=== PATIENT | female | born 1955 | race Two or more races ===

== ENCOUNTER 2017-02-08 14:54 | Emergency (ER) | payer SELFPAY ==
[~2017-02-08] VITALS: Ht 154.9 cm; Wt 90.7 kg
[2017-02-08] MEDS ORDERED: Albuterol ud Inhalation HHN ONE (15:15)
[2017-02-08] MEDS ORDERED: Ketorolac 30mg Inj IV ONE (15:15)
[2017-02-08 15:48] LABS: BASOPHILS % (AUTO) 0.8 % (0.0-2.0); EOSINOPHILS % (AUTO) 2.2 % (0.0-3.0); MEAN CORPUSCULAR HEMOGLOBIN 27.3 PG (27.0-31.0); MEAN CORPUSCULAR HGB CONC 31.8 G/DL (32.0-36.0); MEAN CORPUSCULAR VOLUME 86 FL (80-99); MEAN PLATELET VOLUME 7.1 FL (6.5-10.1); MONOCYTES % (AUTO) 8.3 % (1.0-10.0); NEUTROPHILS % (AUTO) 77.8 % (45.0-75.0); PLATELET COUNT 260 K/UL (150-450); RED BLOOD COUNT 5.09 M/UL (4.20-5.40); RED CELL DISTRIBUTION WIDTH 14.4 % (11.6-14.8)
--- NOTE | 2017-02-08 15:52 | Emergency Room Report ---
History of Present Illness General Chief Complaint: Flu Like Symptoms Source: Patient Present Illness HPI [id number] with 1 day of "feeling high" with dizziness, nausea/vomiting, cough, muscle aches, headache. Denies smoking, asthma/COPD, sick contacts. Didnt take any OTC meds. History fo HTN, non-compliant with med. Denies chest pain, SOB, neck pain/stiffness. Allergies: Coded Allergies: CODEINE (Verified Allergy, Unknown, 02/08/17) Patient History Past Medical History: HTN Past Surgical History: none Pertinent Family History: none Social History: Denies: alcohol use, drug use, smoking Now: No Immunizations: UTD Reviewed Nursing Documentation: PMH: Agreed, PSxH: Agreed Nursing Documentation-PMH Past Medical History: No History, Except For Hx Hypertension: Yes Review of Systems All Other Systems: negative except mentioned in HPI Physical Exam Vital Signs Date Time Temp Pulse Resp B/P Pulse Ox O2 Delivery O2 Flow Rate FiO2 02/08/17 14:50 99.0 98 18 198/92 96 Room Air Sp02 EP Interpretation: reviewed, abnormal General Appearance: normal inspection, well appearing, no apparent distress, alert, GCS 15, non-toxic Head: normocephalic, atraumatic Eyes: bilateral eye EOMI, bilateral eye PERRL ENT: normal ENT inspection, hearing grossly normal, normal voice Neck: normal inspection, full range of motion, supple, no bony tend Respiratory: normal inspection, lungs clear, normal breath sounds, no rhonchi, no respiratory distress, no retraction, no accessory muscle use, no wheezing, speaking full sentences Cardiovascular #1: regular rate, rhythm, no edema Gastrointestinal: normal inspection, normal bowel sounds, non tender, soft, no guarding, no hernia Genitourinary: no CVA tenderness Musculoskeletal: normal inspection, back normal, normal range of motion, Valarie' s Sign negative Neurologic: normal inspection, alert, oriented x3, responsive, sewage plant attendant III-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 Gait is normal Psychiatric: normal inspection, judgement/insight normal, mood/affect normal Skin: normal inspection, normal color, no rash Lymphatic: normal inspection Medical Decision Making Diagnostic Impression: Primary Impression: Influenza-like symptoms Additional Impressions: Bronchitis Hypertension Qualified Codes: I10 - Essential (primary) hypertension ER Course Influenza like symptoms - Improved with IVF NS hydration, toradol, zofran - Patient feels much better - ambulating in ED with steady gait - CXR and UA negative for infection - Utox negative - Mild leuks 11k, likely viral Bronchitis - Improved with nebulizer - Will DC with albuterol inhaler, and Z-pack (was given 500mg azithro for presumed CAP here given subjective fevers, cough). HTN - Patient likely has untreated essential HTN - Will DC with Rx Norvasc as patient does NOT have PMD followu, repeat elevated BP here EKG Diagnostic Results Rate: tachycardiac Rhythm: NSR ST Segments: no acute changes ASA given to the pt in ED: No Rhythm Strip Diag. Results EP Interpretation: yes Rate: 101 Rhythm: NSR, no PVC's, no ectopy Chest X-Ray Diagnostic Results EP Interpretation: Yes Findings: no consolidation, no effusion, no pneumothorax, no acute cardiopulmonary disease Number of Views: 1 Last Vital Signs Date Time Temp Pulse Resp B/P Pulse Ox O2 Delivery O2 Flow Rate FiO2 02/08/17 15:41 105 22 Room Air 02/08/17 15:26 94 02/08/17 14:50 99.0 198/92 Status: improved Disposition: HOME, SELF-CARE JONATHAN ROSE M.D. February 08, 2017 15:52
[2017-02-08 15:57] LABS: TROPONIN I < 0.30 ng/mL (<=0.30)
[2017-02-08] MEDS ORDERED: Azithromycin 500 MG in NS 275 ML IV ONE (16:00)
[2017-02-08 16:01] LABS: ALANINE AMINOTRANSFERASE 23 U/L (3-33); ANION GAP 17 (5-15); ASPARTATE AMINO TRANSFERASE 24 U/L (5-40); CALCIUM 8.4 mg/dL (8.6-10.2); CARBON DIOXIDE 25 mEQ/L (20-30); CHLORIDE 98 mEQ/L (98-107); CREATININE 0.7 mg/dL (0.5-0.9); GLOMERULAR FILTRATION RATE > 60 mL/min (>60); HEMOLYSIS 4; LIPASE 14 U/L (< 60); POTASSIUM 3.5 mEQ/L (3.4-4.9); SODIUM 140 mEQ/L (135-145); TOTAL PROTEIN 7.7 g/dL (6.6-8.7)
[2017-02-08 16:11] LABS: APPEARANCE,URINE SLIGHTLY CLOUDY; KETONES,URINE NEGATIVE (NEGATIVE); LEUKOCYTE ESTERASE ,URINE NEGATIVE (NEGATIVE); NITRITE,URINE NEGATIVE (NEGATIVE); PH,URINE 7 (4.5-8.0); PROTEIN,URINE 2+ (NEGATIVE); UROBILINOGEN,URINE NORMAL MG/DL (0.0-1.0)
[2017-02-08] MEDS ORDERED: Azithromycin Inj IV ONE (16:13)
[2017-02-08 16:18] LABS: BACTERIA,URINE FEW /HPF; MUCUS,URINE FEW /LPF (NONE/OCC); SQUAMOUS EPITHELIAL CELL,UR FEW /LPF (NONE/OCC); WBC,URINE 0 /HPF (0 - 2)
[2017-02-08] MEDS ORDERED: VENTOLIN HFA18 GM INH (16:59)
[2017-02-08] MEDS ORDERED: AZITHROMYCIN250 MG ORAL (16:59)
[2017-02-08] MEDS ORDERED: IBUPROFEN600 MG ORAL (16:59)
[2017-02-08] MEDS ORDERED: NORVASC5 MG ORAL (16:59)
[2017-02-08 17:35] VITALS: BP 160/90
[2017-02-08 17:37] VITALS: BP 160/90
--- NOTE | 2017-02-09 10:52 | Diagnostic Imaging Report ---
Indication: Dyspnea Comparison: None A single view chest radiograph was obtained. Findings: Cardiomediastinal appearance is within normal limits for age. Pulmonary vascularity is appropriate. The diaphragmatic contour is smooth and costophrenic angles are sharp. No pleural effusions are identified. The bones are osteopenic. Impression: No acute findings
--- NOTE | 2017-02-09 18:53 | Cardiology Report ---
APPROVED REPORT EKG Measurement Heart [id number] Sinus tachycardia with single APC's
== END 2017-02-08 17:39 | disposition home or self-care (01) ==
LOC: EDBD 14:54 → EMR 15:21
DX: R09.89 Other specified symptoms and signs involving the circulatory and respiratory systems (principal); J40 Bronchitis, not specified as acute or chronic; I10 Essential (primary) hypertension; Z88.5 Allergy status to narcotic agent; R11.2 Nausea with vomiting, unspecified; R05 Cough; M79.1 Myalgia; R51 Headache; Z91.14 Patient's other noncompliance with medication regimen
CPT/HCPCS: 36415; 71010; 80053; 80300; 81003; 83690; 84484; 85025; 86710; 93005; 94640; 94664; 96374; 96375; 99284; J0456; J1885; J2405; J7050

== ENCOUNTER 2020-08-25 15:15 | Inpatient (IN) | payer MEDICAID ==
[~2020-08-25] VITALS: Ht 154.9 cm; Wt 86.2 kg
[2020-08-25] VITALS: BP 125/64
[~2020-08-25 15:15] MED LIST: AZITHROMYCIN250 MG ORAL; IBUPROFEN600 MG ORAL; NORVASC5 MG ORAL; VENTOLIN HFA18 GM INH
[2020-08-25 15:35] VITALS: BP 185/81
[2020-08-25] MEDS ORDERED: Omnipaque 350 100ml vial INJ PRN ×2 (15:45)
--- NOTE | 2020-08-25 15:47 | Emergency Room Report ---
History of Present Illness General Chief Complaint: Dizziness Source: Patient Present Illness HPI 65-year-old -Maldivian female with past medical history of hypertension presents with chief complaint of sudden onset dizziness and generalized weakness since this morning at 7 AM. She states that she has this feeling of falling to the side like she was gonna pass out, also associated with nausea. Denies tinnitus, visual blurring, slurred speech, head trauma, fall, syncope, chest pain, back pain, abdominal pain, melena, hematochezia, hematuria, fevers, chills, cough or any other symptoms. She states she had a previous episode of this 10 years ago that self resolved after she self administered aspirin. She states she has otherwise been in her normal state of health. No new changes in her medications. The patient's symptoms were gradual onset, severity was moderate, duration since 8 hours. Quality: Dizzy, generally weak Past medical history: Hypertension Past surgical history: Hysterectomy Smoking: Denies Alcohol use: Denies Drug use: Denies Review of systems: CONST: No fevers or chills, No night sweats PULMONARY: No productive cough, No shortness of breath CARDIAC: No chest pain, No palpitations GI: No vomiting, No diarrhea , No melena_or_BRBPR : No dysuria, No hematuria, No discharge NEURO: No new_focal_weakness_or_numbness, No confusion, No vision changes Dizziness++ 14 point Review of Systems is otherwise negative except per HPI Physical Exam: GENERAL: Awake_alert_ nontoxic, no acute distress Spo2 98% on RA -normal EYES: Extraocular muscles are intact. Conjunctivae clear. Lids without swelling. No nystagmus. ENT: External nose and ear normal_in_appearance. Oropharynx clear. Head_atraumatic, Moist_oral_mucosa NECK: No JVD. No meningismus. No thyromegaly. Supple. Trachea midline. No nuchal rigidity RESP: Normal respiratory effort. Symmetric rise. No stridor. Clear_to_auscultation_No_rales_No_wheezes CARDIAC: Regular rate and regular rhytm. No_significant pedal edema. ABDOMEN: Soft. Nondistended. Nontender_No_rebound_or_guarding. MSK: Normal muscle tone, without rigidity. Extremities without asymmetric deformity or swelling. SKIN: Warm and dry. No visible cyanosis or pallor NEUROLOGIC: Alert, oriented x3. Motor_and_sensation_grossly_intact. No truncal ataxia. No pronator drift. No hemiplegia. No slurred speech. No dysarthria. No dysmetria. Psych: Normal mood and affect, normal judgment and insight - COORDINATION OF CARE Case was discussed with: Patient , Patient's Physician Any labs and imaging that were ordered were interpreted as part of the medical decision making: Medical Decision Making/Plan: Differential diagnosis for the patients symptoms include causes of peripheral vertigo (including BPPV, vestibular neuritis, Menieres disease, viral labyrinthitis), causes of central vertigo (including cerebellar ischemic stroke, hemorrhagic stroke, acoustic neuroma, vertebrobasilar insufficiency), malignant arrhythmias, ACS, obstructive heart disease (critical aortic stenosis, hypertrophic cardiomyopathy), acute anemia, severe dehydration, electrolyte abnormalities, among others. Patient's exam shows no focal neurologic deficit. No abnormal cerebellar signs. Negative Romberg. Negative pronator drift. Patient felt too symptomatic (ge nerally weak) to ambulate out of bed. EKG shows no signs of malignant arrhythmia such as Brugada syndrome, delta wave, epsilon wave, significant heart block, or QTc >500. CXR shows cardiomegaly without pleural effusions. Troponin is positive x1 with absolute value of 0.524. BNP is mildly elevated greater than 500. Labs show no severe electrolyte derangement such as severe hyponatremia, hypokalemia, acidosis, or hypoglycemia. CTA head and neck are negative for ICH or LVO. No grossly evident acute abnorm ality on the noncontrast portion. Parenchymal atrophy and chronic lacunar infarcts in the basal ganglia. Aspirin was administered. The patient denies any external blood loss and has no significant pallor or evidence of acute anemia as a cause of their symptoms. Hemoglobin is not severely low, and acute blood transfusion is not indicated. In addition, the patient has no loud murmur or evidence of significant obstructive heart disease, symptoms are not in the setting of exertion. The patient is neurologically intact, with normal cerebellar exam, without any evidence of central vertigo as a cause of their symptoms. I spoke with Dr. CANADA, and reviewed the patients presentation, workup, results, and treatment. They will admit the patient for further care and evaluation, and assume care of the patient at this time. Allergies: Coded Allergies: PENICILLINS (Verified Allergy, Severe, Rash, 08/25/20) CODEINE (Verified Allergy, Unknown, 02/08/17) HYDROCODONE (Verified Allergy, Unknown, 08/25/20) COVID-19 Screening Contact w/high risk pt: No Experienced COVID-19 symptoms?: No COVID-19 Testing performed PROFESSOR OF CHEMISTRY: No Patient History Last Menstrual Period: na Nursing Documentation-PMH Past Medical History: No History, Except For Hx Hypertension: Yes Physical Exam Vital Signs Date Time Temp Pulse Resp B/P (MAP) Pulse Ox O2 Delivery O2 Flow Rate FiO2 08/25/20 15:17 97.9 92 18 185/81 (115) 96 Room Air Sp02 EP Interpretation: reviewed, normal Medical Decision Making Diagnostic Impression: Primary Impression: NSTEMI (non-ST elevated myocardial infarction) Additional Impressions: Pre-syncope Generalized weakness HTN (hypertension) EKG Diagnostic Results Troponin ordered: Yes When was troponin ordered?: Aug 25, 2020 REKHA Scribe Text 12-lead EKG (interpreted by me) Time: 1642 Indication: Rhythm analysis Tracing visualized and Interpreted by me. Rhythm: Normal sinus rhythm Rate: 84 bpm QTc: 427 Morphology: No_significant_ST_elevations_or_depressions, No STEMI Impression: Normal_sinus_rhythm_without_significant_abnormality. T wave inversion lead aVL Rhythm Strip Diag. Results Rhythm Strip Time: 16:51 EP Interpretation: yes Rate: 88 Rhythm: NSR, no PVC's, no ectopy Chest X-Ray Diagnostic Results Chest X-Ray Diagnostic Results : REKHA Scribe Text Chest X-Ray: Views: [ 1 ] view(s) Indication: Dizziness Findings: Normal heart size. Mediastinum normal. No infiltrate. Impression: Cardiomegaly, no pleural effusion, no pneumonia The X-ray(s) were independently viewed and interpreted contemporaneously Electronically signed by , Tashia Brown DO CT/MRI/US Diagnostic Results CT/MRI/US Diagnostic Results : Impression CT Angiography Head Without and With Intravenous Contrast CLINICAL HISTORY: FINDINGS: VASCULATURE: Right internal carotid artery: Atherosclerotic calcifications within the cavernous segment of the right internal carotid artery without significant stenosis. No aneurysm. Right anterior cerebral artery: Unremarkable. No occlusion or significant stenosis. No aneurysm. Right middle cerebral artery: Unremarkable. No occlusion or significant stenosis. No aneurysm. Right posterior cerebral artery: origin of the LANDSCAPE GARDENER on the right. Multifocal atherosclerotic disease within the right LANDSCAPE GARDENER. No arterial occlusion. No aneurysm. Right vertebral artery: Unremarkable as visualized. Left internal carotid artery: Atherosclerotic calcifications within the cavernous segment of the left internal carotid artery without significant stenosis. No aneurysm. Left anterior cerebral artery: Unremarkable. No occlusion or significant stenosis. No aneurysm. Left middle cerebral artery: Unremarkable. No occlusion or significant stenosis. No aneurysm. Left posterior cerebral artery: Multifocal atherosclerotic disease within the left LANDSCAPE GARDENER. No arterial occlusion. No aneurysm. Left vertebral artery: Unremarkable as visualized. Basilar artery: Multifocal mild to moderate stenosis within the basilar artery. No aneurysm. HEAD: Brain: No intracranial hemorrhage or grossly evident acute cortical infarct. Parenchymal atrophy. Chronic lacunar infarcts within the bilateral basal ganglia. Ventricles: Unremarkable. No ventriculomegaly. Bones/joints: No acute fracture. Soft tissues: Unremarkable. Sinuses: Unremarkable as visualized. No acute sinusitis. Mastoid air cells: Unremarkable as visualized. No mastoid effusion. IMPRESSION: 1. No grossly evident acute abnormality on the noncontrast portion. Parenchymal atrophy and chronic lacunar infarcts in the basal ganglia. 2. No arterial occlusion. 3. Multifocal atheromatous disease within the basilar artery and gravity prospecting supervisor. Radiologist: Jose Cruz Alvarez MD Electronically Signed: 08/25/20 19:59 Reevaluation Time: 16:52 Last Vital Signs Date Time Temp Pulse Resp B/P (MAP) Pulse Ox O2 Delivery O2 Flow Rate FiO2 08/25/20 15:17 97.9 92 18 185/81 (115) 96 Room Air Status: improved Disposition: ADMITTED INPATIENT Admit Decision Time: 16:52 Condition: Stable Tashia Brown D.O. Aug 25, 2020 15:47
[2020-08-25 17:20] LABS: BASOPHILS % (AUTO) 0.6 % (0.0-2.0); EOSINOPHILS % (AUTO) 0.8 % (0.0-3.0); HEMATOCRIT 35.9 % (37.0-47.0); HEMOGLOBIN 12.2 G/DL (12.0-16.0); LYMPHOCYTES % (AUTO) 20.5 % (20.0-45.0); MEAN CORPUSCULAR VOLUME 85 FL (80-99); MONOCYTES % (AUTO) 6.4 % (1.0-10.0); NEUTROPHILS % (AUTO) 71.7 % (45.0-75.0); PLATELET COUNT 257 K/UL (150-450); RED BLOOD COUNT 4.22 M/UL (4.20-5.40); RED CELL DISTRIBUTION WIDTH 14.1 % (11.6-14.8); WHITE BLOOD COUNT 12.6 K/UL (4.8-10.8)
[2020-08-25 17:22] LABS: ALANINE AMINOTRANSFERASE 20 U/L (12-78); ALBUMIN 3.3 G/DL (3.4-5.0); ALBUMIN/GLOBULIN RATIO 0.8 (1.0-2.7); ALKALINE PHOSPHATASE 99 U/L (46-116); ASPARTATE AMINO TRANSFERASE 13 U/L (15-37); BILIRUBIN,TOTAL 0.6 MG/DL (0.2-1.0); BLOOD UREA NITROGEN 13 mg/dL (7-18); CALCIUM 8.5 MG/DL (8.5-10.1); CARBON DIOXIDE 30 MMOL/L (21-32); CHOLESTEROL 188 MG/DL (< 200); CREATININE 0.9 MG/DL (0.55-1.30); HDL CHOLESTEROL 48 MG/DL (40-60); TRIGLYCERIDES 128 MG/DL (30-150)
--- NOTE | 2020-08-25 17:30 | Diagnostic Imaging Report ---
EXAM: XR Chest, 1 View CLINICAL HISTORY: WEAK TECHNIQUE: Frontal view of the chest. COMPARISON: No relevant prior studies available. FINDINGS: Lungs: Unremarkable. No consolidation. Pleural space: No pleural effusion. No pneumothorax. Heart: Unremarkable. No cardiomegaly. Bones/joints: Unremarkable. IMPRESSION: No acute cardiopulmonary abnormality.
[2020-08-25 18:11] LABS: CHLORIDE 103 MMOL/L (98-107); POTASSIUM 3.1 MMOL/L (3.5-5.1); SODIUM 140 MMOL/L (136-145)
[2020-08-25 19:24] LABS: APPEARANCE,URINE CLEAR; BILIRUBIN, URINE NEGATIVE (NEGATIVE); COLOR,URINE PALE YELLOW; GLUCOSE, URINE (UA) NEGATIVE (NEGATIVE); KETONES,URINE 1+ (NEGATIVE); LEUKOCYTE ESTERASE ,URINE NEGATIVE (NEGATIVE); NITRITE,URINE NEGATIVE (NEGATIVE); PH,URINE 7 (4.5-8.0); PROTEIN,URINE NEGATIVE (NEGATIVE); UROBILINOGEN,URINE NORMAL MG/DL (0.0-1.0)
[2020-08-25 19:38] VITALS: BP 169/75
--- NOTE | 2020-08-25 19:59 | Diagnostic Imaging Report ---
EXAM: CT Angiography Head Without and With Intravenous Contrast CLINICAL HISTORY: DIZZY TECHNIQUE: Axial computed tomographic angiography images of the head without and with intravenous contrast. CTDI is 45.1 mGy and DLP is 1110.5 mGy-cm. One or more of the following dose reduction techniques were used: automated exposure control, adjustment of the mA and/or kV according to patient size, use of iterative reconstruction technique. MIP reconstructed images were created and reviewed. COMPARISON: No relevant prior studies available. FINDINGS: VASCULATURE: Right internal carotid artery: Atherosclerotic calcifications within the cavernous segment of the right internal carotid artery without significant stenosis. No aneurysm. Right anterior cerebral artery: Unremarkable. No occlusion or significant stenosis. No aneurysm. Right middle cerebral artery: Unremarkable. No occlusion or significant stenosis. No aneurysm. Right posterior cerebral artery: origin of the ANALYSIS CONSULTANT on the right. Multifocal atherosclerotic disease within the right ANALYSIS CONSULTANT. No arterial occlusion. No aneurysm. Right vertebral artery: Unremarkable as visualized. Left internal carotid artery: Atherosclerotic calcifications within the cavernous segment of the left internal carotid artery without significant stenosis. No aneurysm. Left anterior cerebral artery: Unremarkable. No occlusion or significant stenosis. No aneurysm. Left middle cerebral artery: Unremarkable. No occlusion or significant stenosis. No aneurysm. Left posterior cerebral artery: Multifocal atherosclerotic disease within the left ANALYSIS CONSULTANT. No arterial occlusion. No aneurysm. Left vertebral artery: Unremarkable as visualized. Basilar artery: Multifocal mild to moderate stenosis within the basilar artery. No aneurysm. HEAD: Brain: No intracranial hemorrhage or grossly evident acute cortical infarct. Parenchymal atrophy. Chronic lacunar infarcts within the bilateral basal ganglia. Ventricles: Unremarkable. No ventriculomegaly. Bones/joints: No acute fracture. Soft tissues: Unremarkable. Sinuses: Unremarkable as visualized. No acute sinusitis. Mastoid air cells: Unremarkable as visualized. No mastoid effusion. IMPRESSION: 1. No grossly evident acute abnormality on the noncontrast portion. Parenchymal atrophy and chronic lacunar infarcts in the basal ganglia. 2. No arterial occlusion. 3. Multifocal atheromatous disease within the basilar artery and junior art director.
[2020-08-25 20:34] VITALS: BP 157/72
[2020-08-25] MEDS ORDERED: Zolpidem 5mg tab ORAL PRN (21:45)
[2020-08-25] MEDS: Heparin 5000 units/ml inj SUBQ SCH (23:35)
[2020-08-26] VITALS: BP 125/64
[2020-08-26 04:00] VITALS: BP 140/59
[2020-08-26 08:00] VITALS: BP 130/67
[2020-08-26] MEDS: Heparin 5000 units/ml inj SUBQ SCH ×2 (08:54→21:55)
[2020-08-26] MEDS ORDERED: Aspirin EC 325mg tab ORAL SCH (09:00)
--- NOTE | 2020-08-26 09:42 | History & Physical ---
History and Physical History & Physicial HP dictated # [id number] Garland Freire MD Aug 26, 2020 09:42
--- NOTE | 2020-08-26 10:29 | History and Physical Report ---
DATE OF ADMISSION: 08/25/2020 CHIEF COMPLAINT: Dizziness, vomiting, and blurred vision. HISTORY OF PRESENT ILLNESS: This is a 65-year-old female who was shopping yesterday in the store. She felt that the light was dark. She kept the shopping but then she had feeling of disequilibrium . She did not feel well, feeling of falling to one side, also she had some blurred vision. Finally, she came to the emergency room and was admitted. She has had high blood pressure but she apparently was not taking medications because she felt that it did not help her to control the blood pressure. No matter if she took it or not, the blood pressure was the same. PAST MEDICAL HISTORY: She denies history of diabetes, previous stroke, she did have a similar episode years ago but not to this degree. PAST SURGICAL HISTORY: She is status post hysterectomy. MEDICATIONS: None at admission. ALLERGIES: Codeine, hydrocodone, and penicillin causing itching. SOCIAL HISTORY: No history of smoking or alcohol abuse. The patient lives with her daughter. REVIEW OF SYSTEMS: As above. PHYSICAL EXAMINATION: GENERAL: The patient is a 65-year-old female in no acute distress. No vomiting today. VITAL SIGNS: Blood pressure 130/67, pulse 91, temperature 96.8. HEENT: [place] conjunctivae. Anicteric sclerae. NECK: Supple. LUNGS: Clear to auscultation. HEART: S1, S2 without murmurs or rubs. ABDOMEN: Soft, nontender. EXTREMITIES: No cyanosis or edema. LABORATORY FINDINGS: The chemistry panel shows a sodium 140, potassium 3.1, chloride 103, carbon dioxide 30, BUN 13, and creatinine 0.9, blood sugar is 118. Hemoglobin A1c was 7.5. Troponin was elevated at 0.52. Albumin is 3.3. Triglyceride 128, LDL is 114. Lipase is 79. HDL is 48. UA was [place]. [place] [address], hematocrit 35.9, hemoglobin is 12.2, platelet is 257,000. ASSESSMENT: This is a 65-year-old female was admitted with a lack of balance, disequilibrium, some blurred vision. Differential diagnosis of transient ischemic attack. I doubt CVA. Risk factor is obviously uncontrolled hypertension but also her hemoglobin A1c is elevated. She probably has undiagnosed diabetes as well. PLAN: The patient will be observed in telemetry unit. Neurology consultation will be obtained. The blood sugar will be checked. The patient will be on sliding scale insulin. Blood pressure will be controlled. Labs will be followed and adjustment will be made in the patient's regimen. The patient will be also seen by Physical Therapy. Garland Freire M.D. DR: Catherine JOB#: [id number] CC:
[2020-08-26 12:00] VITALS: BP 129/81
[2020-08-26] MEDS ORDERED: Gadavist 7.5mMol/7.5ml vial IV PRN (13:00)
--- NOTE | 2020-08-26 13:56 | Cardiology Progress Note ---
Assessment/Plan Assessment/Plan [id number] no sx to asuggest acs mildl trop abn withno peak nor andir over 18 hour will b repeated venous duplex will be oreded echo reepat ekg agree widavid burcho evalutaion bp conteol with margaret and amlodipine and possible bb thank you Objective Last 24 Hour Vital Signs Date Time Temp Pulse Resp B/P (MAP) Pulse Ox O2 Delivery O2 Flow Rate FiO2 08/26/20 08:54 91 130/67 08/26/20 08:48 79 08/26/20 08:00 96.8 91 19 130/67 (88) 100 08/26/20 04:00 79 08/26/20 04:00 97.7 18 140/59 (86) 95 08/26/20 00:00 98.1 18 125/64 (84) 96 08/26/20 00:00 89 08/25/20 23:34 171/80 08/25/20 22:47 Room Air 08/25/20 21:30 98.0 80 18 161/76 100 Room Air 08/25/20 20:34 98.0 85 18 157/72 100 Room Air 08/25/20 19:38 98.0 81 18 169/75 100 Room Air 08/25/20 15:35 92 18 Room Air 08/25/20 15:35 97.9 18 185/81 96 Room Air 08/25/20 15:17 97.9 92 18 185/81 (115) 96 Room Air Laboratory Tests Test 08/25/20 15:55 08/25/20 18:53 08/26/20 07:40 White Blood Count 12.6 K/UL (4.8-10.8) H Red Blood Count 4.22 M/UL (4.20-5.40) Hemoglobin 12.2 G/DL (12.0-16.0) Hematocrit 35.9 % (37.0-47.0) L Mean Corpuscular Volume 85 FL (80-99) Mean Corpuscular Hemoglobin 28.8 PG (27.0-31.0) Mean Corpuscular Hemoglobin Concent 33.9 G/DL (32.0-36.0) Red Cell Distribution Width 14.1 % (11.6-14.8) Platelet Count 257 K/UL (150-450) Mean Platelet Volume 7.6 FL (6.5-10.1) Neutrophils (%) (Auto) 71.7 % (45.0-75.0) Lymphocytes (%) (Auto) 20.5 % (20.0-45.0) Monocytes (%) (Auto) 6.4 % (1.0-10.0) Eosinophils (%) (Auto) 0.8 % (0.0-3.0) Basophils (%) (Auto) 0.6 % (0.0-2.0) Prothrombin Time 11.0 SEC (9.30-11.50) Prothromb Time International Ratio 1.0 (0.9-1.1) Activated Partial Thromboplast Time 27 SEC (23-33) Sodium Level 140 MMOL/L (136-145) Potassium Level 3.1 MMOL/L (3.5-5.1) L Chloride Level 103 MMOL/L (98-107) Carbon Dioxide Level 30 MMOL/L (21-32) Blood Urea Nitrogen 13 mg/dL (7-18) Creatinine 0.9 MG/DL (0.55-1.30) Estimat Glomerular Filtration Rate > 60 mL/min (>60) Glucose Level 118 MG/DL (74-106) H Hemoglobin A1c 7.5 % (4.3-6.0) H Calcium Level 8.5 MG/DL (8.5-10.1) Total Bilirubin 0.6 MG/DL (0.2-1.0) Aspartate Amino Transf (AST/SGOT) 13 U/L (15-37) L Alanine Aminotransferase (ALT/SGPT) 20 U/L (12-78) Alkaline Phosphatase 99 U/L (46-116) Troponin I 0.524 ng/mL (0.000-0.056) 0.516 ng/mL (0.000-0.056) Pro-B-Type Natriuretic Peptide 504 pg/mL (0-125) H Total Protein 7.3 G/DL (6.4-8.2) Albumin 3.3 G/DL (3.4-5.0) L Globulin 4.0 g/dL Albumin/Globulin Ratio 0.8 (1.0-2.7) L Triglycerides Level 128 MG/DL (30-150) Cholesterol Level 188 MG/DL (< 200) LDL Cholesterol 114 mg/dL (<100) H HDL Cholesterol 48 MG/DL (40-60) Cholesterol/HDL Ratio 3.9 (3.3-4.4) Lipase 79 U/L (73-393) Urine Color Pale yellow Urine Appearance Clear Urine pH 7 (4.5-8.0) Urine Specific [place] 1.005 (1.005-1.035) Urine Protein Negative (NEGATIVE) Urine Glucose (UA) Negative (NEGATIVE) Urine Ketones 1+ (NEGATIVE) H Urine Blood Negative (NEGATIVE) Urine Nitrite Negative (NEGATIVE) Urine Bilirubin Negative (NEGATIVE) Urine Urobilinogen Normal MG/DL (0.0-1.0) Urine Leukocyte Esterase Negative (NEGATIVE) Hema Reed MD Aug 26, 2020 13:56
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
[2020-08-26 15:58] VITALS: BP 123/80
[2020-08-26] MEDS: Lisinopril 10mg tab ORAL SCH (18:18)
[2020-08-26 20:00] VITALS: BP 158/82
[2020-08-27] VITALS (7 sets, daily range): BP systolic 138–160; BP diastolic 71–89
[2020-08-27 09:14] LABS: BASOPHILS % (AUTO) 0.7 % (0.0-2.0); HEMATOCRIT 35.6 % (37.0-47.0); HEMOGLOBIN 11.9 G/DL (12.0-16.0); LYMPHOCYTES % (AUTO) 24.4 % (20.0-45.0); MEAN CORPUSCULAR VOLUME 84 FL (80-99); MONOCYTES % (AUTO) 7.4 % (1.0-10.0); NEUTROPHILS % (AUTO) 64.5 % (45.0-75.0); PLATELET COUNT 233 K/UL (150-450); RED BLOOD COUNT 4.22 M/UL (4.20-5.40); RED CELL DISTRIBUTION WIDTH 14.6 % (11.6-14.8); WHITE BLOOD COUNT 8.6 K/UL (4.8-10.8)
[2020-08-27 09:24] LABS: ALANINE AMINOTRANSFERASE 19 U/L (12-78); ALBUMIN 2.9 G/DL (3.4-5.0); ALBUMIN/GLOBULIN RATIO 0.9 (1.0-2.7); ALKALINE PHOSPHATASE 90 U/L (46-116); ANION GAP 7 mmol/L (5-15); ASPARTATE AMINO TRANSFERASE 16 U/L (15-37); BILIRUBIN,TOTAL 0.6 MG/DL (0.2-1.0); BLOOD UREA NITROGEN 14 mg/dL (7-18); CARBON DIOXIDE 29 MMOL/L (21-32); CHLORIDE 106 MMOL/L (98-107); CREATININE 0.8 MG/DL (0.55-1.30); POTASSIUM 3.3 MMOL/L (3.5-5.1); SODIUM 142 MMOL/L (136-145)
[2020-08-27 09:36] LABS: CREATINE KINASE 59 U/L (26-308)
[2020-08-27] MEDS: Heparin 5000 units/ml inj SUBQ SCH ×2 (10:56→20:35)
[2020-08-27] MEDS: Lisinopril 10mg tab ORAL SCH ×2 (11:14→18:25)
--- NOTE | 2020-08-27 12:26 | General Progress Note ---
Subjective Allergies: Coded Allergies: PENICILLINS (Verified Allergy, Severe, Rash, 08/25/20) CODEINE (Verified Allergy, Unknown, 02/08/17) HYDROCODONE (Verified Allergy, Unknown, 08/25/20) Subjective C/O ALONZO Objective Last 24 Hour Vital Signs Date Time Temp Pulse Resp B/P (MAP) Pulse Ox O2 Delivery O2 Flow Rate FiO2 08/27/20 12:00 97.2 73 18 160/83 (108) 97 08/27/20 11:14 138/78 08/27/20 10:52 86 138/78 08/27/20 08:00 98.7 86 18 138/78 (98) 97 08/27/20 04:05 164/82 08/27/20 04:00 98.1 81 18 159/89 (112) 94 08/27/20 00:00 97.9 85 19 156/78 (104) 99 08/26/20 21:00 Room Air 08/26/20 20:00 97.7 81 19 158/82 (107) 95 08/26/20 18:18 123/80 08/26/20 15:58 98.8 87 19 123/80 (94) 96 08/26/20 15:10 68 Intake and Output 08/26/20 08/27/20 19:00 07:00 Intake Total 360 ml Balance 360 ml Intake Other 360 ml # Voids 4 2 Laboratory Tests 08/26/20 15:45: Troponin I 0.537H, C-Reactive Protein, Quantitative 3.2H 08/26/20 21:40: Troponin I 0.456H 08/27/20 08:35: Troponin I 0.410H, White Blood Count 8.6, Red Blood Count 4.22, Hemoglobin 11.9L , Hematocrit 35.6L, Mean Corpuscular Volume 84, Mean Corpuscular Hemoglobin 28.2, Mean Corpuscular Hemoglobin Concent 33.5, Red Cell Distribution Width 14.6, Platelet Count 233, Mean Platelet Volume 7.8, Neutrophils (%) (Auto) 64.5, Lymphocytes (%) (Auto) 24.4, Monocytes (%) (Auto) 7.4, Eosinophils (%) (Auto) 3.0, Basophils (%) (Auto) 0.7, Sodium Level 142, Potassium Level 3.3L, Chloride Level 106, Carbon Dioxide Level 29, Anion Gap 7, Blood Urea Nitrogen 14, Creatinine 0.8, Estimat Glomerular Filtration Rate > 60, Glucose Level 137H, Calcium Level 8.0L, Total Bilirubin 0.6, Aspartate Amino Transf (AST/SGOT) 16, Alanine Aminotransferase (ALT/SGPT) 19, Alkaline Phosphatase 90, Total Creatine Kinase 59, Pro-B-Type Natriuretic Peptide 345H, Total Protein 6.2L, Albumin 2.9L , Globulin 3.3, Albumin/Globulin Ratio 0.9L Height (Feet): 5 Height (Inches): 1.00 Weight (Pounds): 190 Cardiovascular: normal rate Respiratory/Chest: lungs clear Edema: no edema noted Generalized Assessment/Plan Problem List: (1) Dizziness ICD Codes: R42 - Dizziness and giddiness SNOMED: 778409666, 520851892 (2) Pre-syncope ICD Codes: R55 - Syncope and collapse SNOMED: 484690543 (3) HTN (hypertension) ICD Codes: I10 - Essential (primary) hypertension SNOMED: 64275384 (4) Generalized weakness ICD Codes: R53.1 - Weakness SNOMED: 03857254 (5) DM (diabetes mellitus) ICD Codes: E11.9 - Type 2 diabetes mellitus without complications SNOMED: 11013014 Status Narrative BP better she said Amlodipine did not help BP before Assessment/Plan: add chlorthalidone add Januvia Neuro F/U discussed with RN and Garland Duran MD Aug 27, 2020 12:26
--- NOTE | 2020-08-27 15:31 | Diagnostic Imaging Report ---
Indication: Unsteady gait, syncope, vomiting Technique: sagittal T1 fast spin echo, axial T1 FLAIR, axial T2 FLAIR, axial T2 FS PROPELLER, axial T2* GRE, axial diffusion weighted images. ADC and exponential ADC maps generated Comparison: No comparison MRI. Reference made to CT scan dated 08/25/2020 Findings: No abnormal areas of restricted diffusion to suggest acute infarction. No acute hemorrhage or edema. There is an area of mostly high T2 signal involving the caudate head extending inferiorly into the basal ganglia on the right. This demonstrates peripheral low T1 signal as well as some susceptibility artifact on the GRE images. This corresponds to findings seen on recent CT scan. Old lacunar infarcts are also seen in the left basal ganglia.. No mass effect nor midline shift. Normal for age ventricles and extra axial CSF spaces. Visualized orbits are unremarkable.. Vascular flow voids are preserved. There is bilateral maxillary, ethmoid, and sphenoid sinus mucosal thickening demonstrated. Impression: Negative for acute intracranial bleed, mass effect, or infarct Old bilateral lacunar infarcts Susceptibility artifact and low T1 signal associated with the right anterior basal ganglia lacunar infarct may indicate that this was at least in part a prior hemorrhage
--- NOTE | 2020-08-27 19:07 | Cardiology Progress Note ---
Assessment/Plan Assessment/Plan 1. Acute neurological symptoms of balance and vision. 2. Hypertension, reportedly chronic with poor control secondary noncompliance. 3. Obesity. 4. History of deep venous thromboses, status post therapy four years ago. 5. Abnormal cardiac enzyme no peak or segundo no sx to suggest acs mild trop abn withno peak nor andir over more than 24 hour not suggestive of acs venous duplex pending echo pedning vit b12 level neuro fu reepat ekg Subjective Cardiovascular: Denies: chest pain, lightheadedness Respiratory: Denies: shortness of breath Gastrointestinal/Abdominal: Denies: abdominal pain Genitourinary: Denies: burning Subjective still with dizzinerss off balance Objective Last 24 Hour Vital Signs Date Time Temp Pulse Resp B/P (MAP) Pulse Ox O2 Delivery O2 Flow Rate FiO2 08/27/20 18:25 147/82 08/27/20 16:00 97.6 74 143/74 (97) 08/27/20 14:30 73 139/73 (95) 08/27/20 12:00 97.2 73 18 160/83 (108) 97 08/27/20 11:14 138/78 08/27/20 10:52 86 138/78 08/27/20 08:00 98.7 86 18 138/78 (98) 97 08/27/20 04:05 164/82 08/27/20 04:00 98.1 81 18 159/89 (112) 94 08/27/20 00:00 97.9 85 19 156/78 (104) 99 08/26/20 21:00 Room Air 08/26/20 20:00 97.7 81 19 158/82 (107) 95 General Appearance: no apparent distress, alert Neck: supple Cardiovascular: normal rate Respiratory/Chest: lungs clear Abdomen: normal bowel sounds, non tender, soft Extremities: no swelling Intake and Output 08/26/20 08/27/20 18:59 06:59 Intake Total 360 ml Balance 360 ml Intake Other 360 ml # Voids 4 2 Laboratory Tests Test 08/26/20 21:40 08/27/20 08:35 Troponin I 0.456 ng/mL (0.000-0.056) 0.410 ng/mL (0.000-0.056) White Blood Count 8.6 K/UL (4.8-10.8) Red Blood Count 4.22 M/UL (4.20-5.40) Hemoglobin 11.9 G/DL (12.0-16.0) L Hematocrit 35.6 % (37.0-47.0) L Mean Corpuscular Volume 84 FL (80-99) Mean Corpuscular Hemoglobin 28.2 PG (27.0-31.0) Mean Corpuscular Hemoglobin Concent 33.5 G/DL (32.0-36.0) Red Cell Distribution Width 14.6 % (11.6-14.8) Platelet Count 233 K/UL (150-450) Mean Platelet Volume 7.8 FL (6.5-10.1) Neutrophils (%) (Auto) 64.5 % (45.0-75.0) Lymphocytes (%) (Auto) 24.4 % (20.0-45.0) Monocytes (%) (Auto) 7.4 % (1.0-10.0) Eosinophils (%) (Auto) 3.0 % (0.0-3.0) Basophils (%) (Auto) 0.7 % (0.0-2.0) Sodium Level 142 MMOL/L (136-145) Potassium Level 3.3 MMOL/L (3.5-5.1) L Chloride Level 106 MMOL/L (98-107) Carbon Dioxide Level 29 MMOL/L (21-32) Anion Gap 7 mmol/L (5-15) Blood Urea Nitrogen 14 mg/dL (7-18) Creatinine 0.8 MG/DL (0.55-1.30) Estimat Glomerular Filtration Rate > 60 mL/min (>60) Glucose Level 137 MG/DL (74-106) H Calcium Level 8.0 MG/DL (8.5-10.1) L Total Bilirubin 0.6 MG/DL (0.2-1.0) Aspartate Amino Transf (AST/SGOT) 16 U/L (15-37) Alanine Aminotransferase (ALT/SGPT) 19 U/L (12-78) Alkaline Phosphatase 90 U/L (46-116) Total Creatine Kinase 59 U/L (26-308) Pro-B-Type Natriuretic Peptide 345 pg/mL (0-125) H Total Protein 6.2 G/DL (6.4-8.2) L Albumin 2.9 G/DL (3.4-5.0) L Globulin 3.3 g/dL Albumin/Globulin Ratio 0.9 (1.0-2.7) L Hema Reed MD Aug 27, 2020 19:07
[2020-08-28 00:22] VITALS: BP 162/71
[2020-08-28 04:00] VITALS: BP 150/81
[2020-08-28] MEDS: sitaGLIPtin 50mg tab ORAL SCH (06:05)
[2020-08-28] MEDS ORDERED: sitaGLIPtin 50mg tab ORAL SCH (06:30)
--- NOTE | 2020-08-28 07:14 | Consultation ---
DATE OF CONSULTATION: 08/26/2020 NEUROLOGIC CONSULTATION CONSULTING PHYSICIAN: Austin Ramirez MD This is the first [facility] admission for this 65-year-old woman who has a history of hypertension for 3 years, COPD with a [id number] history of smoking. The patient was brought to this hospital with a history of blurred or double vision, dizziness, vomiting, numbness, tingling . She complains of left knee pain. I was asked to see this patient because of these problems. HISTORY OF PRESENT ILLNESS: Patient had a similar episode. She stated she was admitted to this hospital, but there is no record of it. She could not walk at that time. Yesterday, the patient was in the store. She got blurred vision and was dizzy. She continued to have a headache, she has had daily constant for the last 3 years. She was brought to this hospital, complained of nausea. She also complained of what sounds like vertical diplopia, which was poorly described. Initially, she had an elevated white blood cell count of 12,600, a slightly decreased hematocrit of 35.9, platelets were normal. Urinalysis is basically intact except for +1 ketones. Chemistries revealed a minimally low potassium, elevated troponin as high as 0.5, 0.4, high LDL cholesterol of 114 and HDL cholesterol of 48, lipase was 79. Glucose is slightly elevated at 118. PT and PTT were normal. The patient had a chest x-ray yesterday, which was negative. She had a CT angiogram of the brain, which revealed a origin METAL FAB[employer]IC[employer] WELDER in the right, multifocal atherosclerotic disease within the right METAL FAB[employer]IC[employer] WELDER. Right vertebral artery was unremarkable. There were atherosclerotic calcifications within the cavernous segment of the right internal carotid artery without significant stenosis. The basal artery revealed multifocal mild to moderate stenosis within the basilar artery. Left posterior cerebral artery revealed multifocal atherosclerotic disease within the left METAL FAB[employer]IC[employer] WELDER. No arterial occlusion or aneurysm is noted. The left vertebral artery was unremarkable as visualized. Patient does complain of some memory loss within the past week, daily constant headache for the last 3 years, which is bifrontal, like a rubber band around her head, 8/10 severity. Patient denies any hearing loss or tinnitus. Denies any dizzy spells. She denies any recent head or neck injury, but has some left-sided neck pain. There is probably no dysphagia and no dysarthria. She denies a history of congestive heart failure, heart disease, palpitations of the heart. There is no fever or chills or lightheadedness. Patient is depressed. Patient takes amlodipine at home. She is on Zithromax and ibuprofen and albuterol sulfate. Mother had "micro strokes." Brother with a stroke. PAST MEDICAL HISTORY/PAST MEDICAL ILLNESSES: 1. Fibroid tumors in the uterus with hysterectomy. 2. Hypertension. See above. 3. Urinary tract infection in the past. 4. COPD. See above. ALLERGIES: She is allergic to [place], codeine, and penicillin. SOCIAL HISTORY: She is , 2 children, in good health. 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 SURGERIES: She had a hysterectomy, also had normal pregnancies. FAMILY HISTORY: Her father of heart disease. Her mother of a iatrogenic surgery on her back. She also had hypertension. MEDICATIONS: See above. REVIEW OF SYSTEMS: Her appetite is good. She is 192 pounds, 5 feet 1 inch tall. PHYSICAL EXAMINATION: GENERAL: She is a well-developed, obese, woman, in no acute distress. VITAL SIGNS: The blood pressure is 130/67, pulse is 91 and regular, temperature is 96.8 degrees, respiratory rate of 19. HEENT: Examination of head is fairly unremarkable. NECK: There is left-sided posterior cervical tenderness. There are no muscle spasms. Otherwise, the neck is supple. Carotids are +1 to +2. No bruits are appreciated. LUNGS: Clear to auscultation. CARDIOVASCULAR: PMI could not be felt. JVP was not seen. Heart tones were distant. I could not make them out well. ABDOMEN: The abdomen is obese. Bowel sounds intact. There is no tenderness, masses, or organomegaly appreciated. EXTREMITIES: There is no edema noted. NEUROLOGIC EXAMINATION: MENTAL STATUS: Judgment was not tested. Affect is appropriate. Memory, past memory is intact to her birthday, which is 1955. Immediate recall is 3/3 objects. Recent recall was 2/3 objects at 5 minutes. Intellect, similarities are concrete i.e. cat and dog "have 4 feet." Orientation, time, she knew it was 08/26/2020 and Thursday. She knew she was at [facility], probably 2nd or 3rd floor. Person, she is oriented to person. Language function, spoken speech was fluent without paraphasias. Comprehension and repetition were intact. There is no right left confusion or finger agnosia. She could spell world backwards and forwards. CRANIAL NERVE EXAMINATION: CRANIAL NERVE II: Visual sheehan are intact to confrontation. CRANIAL NERVES III, IV, AND : Extraocular motility was full except there was what appears to be vertical diplopia on the right down gaze covering the right eye. She could not tell me which object disappeared. Otherwise, there was no diplopia. The pupils were approximately 3 mm, round, and reactive to light. CRANIAL NERVE V: Facial and corneal sensation were intact to fine touch. Pterygoid strength is 5/5. CRANIAL NERVE VII: Facial strength is 5/5. CRANIAL NERVE VIII: Auditory acuity is intact to loud whisper. CRANIAL NERVES IX AND X: Not tested. CRANIAL NERVE XI: Sternocleidomastoid mastoid strength is 5/5. CRANIAL NERVE XII: Tongue protrudes in the midline without fasciculations or atrophy. MUSCLE EXAMINATION: Muscle bulk and tone are normal. Strength is 5/5 proximally and distally in the upper extremities without pronator drift. There is questionable decreased weakness like 5-/5 in the left lower extremity, although she complains of pain around her left knee. COORDINATION: Thduqt-[id number]-nudu, rapid alternating movements, [id number] testing were intact. REFLEXES: +1 in the upper extremities, +1 at the knees, +1/2 at the ankles. There is a questionable upgoing toe on the right, withdrawal on the left side. GAIT AND STATION: Patient had a borderline based gait. Romberg is negative. Heel and toe walk are decreased. She could not tandem walk at all. SENSORY: Pinprick, fine touch, proprioception were intact. IMPRESSION: This patient may have a posterior circulation stroke with involvement of the upper part of the aakash, possibly related to basilar artery disease rather than a small vessel disease. The diplopia on the right side suggests right-sided ischemia as well. Numbness and tingling in the left hand and left leg weakness also suggests possible right-sided disease. Even a penetrator artery could be involved. Patient also may have an upgoing toe on the right side and she has on her CT scan of the brain chronic lacunnar infarction in the bilateral basal ganglia, again related to small vessel disease. Patient should have an MRI scan of the brain, probably an MRA of her neck. Given the pain she has, I am going to start her on aspirin and Plavix. The C-reactive protein should be obtained. PLAN: 1. C-reactive protein. 2. MRI of the brain and MRA of the neck. 3. Aspirin 325 mg and Plavix 75 mg daily. 4. Physical therapy consult. 5. I will speak to you about this case. Thank you for this interesting case, Dr. Freire. Austin Ramirez MD DR: MITCHELL JOB#: [id number] CC: EVELYN
[2020-08-28 08:00] VITALS: BP 164/76
[2020-08-28] MEDS: Lisinopril 10mg tab ORAL SCH (08:27)
[2020-08-28] MEDS: Heparin 5000 units/ml inj SUBQ SCH ×2 (08:31→20:53)
--- NOTE | 2020-08-28 10:06 | Diagnostic Imaging Report ---
Indication: Reason For Exam: DVT Technique: Grayscale and duplex images of the bilateral lower extremity veins Comparison: None Findings: Bilaterally, grayscale and duplex images demonstrate no evidence of intraluminal thrombus. Normal phasic Doppler waveforms, demonstrating normal augmentation response and no evidence of valvular insufficiency. Greater saphenous vein(s) and tibial veins are patent. Normal compressibility. Impression: Negative for evidence of lower extremity deep venous thrombosis bilaterally
--- NOTE | 2020-08-28 13:11 | Cardiology Report ---
APPROVED REPORT EXAM: Two-dimensional and M-mode echocardiogram with Doppler and color Doppler. INDICATION Palpitations M-Mode DIMENSIONS IVSd1.3 (0.7-1.1cm)Left Atrium (MM)4.4 (1.6-4.0cm) LVDd5.6 (3.5-5.6cm)Aortic Root3.3 (2.0-3.7cm) PWd1.2 (0.7-1.1cm)Aortic Cusp Exc.2.0 (1.5-2.0cm) IVSs1.6 cmEPSS0.5 (>1.0cm) LVDs4.3 (2.5-4.0cm) PWs2.0 cm <Conclusion> Technically difficult study due to poor acoustic windows. Study quality precludes accurate assessment of regional wall motion. Normal left ventricular chamber size, systolic function and wall motion. Left ventricular ejection fraction estimated to be 65-70 %. Mild left ventricular hypertrophy. Small posterior pericardial effusion. Mild left atrial enlargement. Right cardiac chamber sizes are within normal limits. Focal aortic valve sclerosis with adequate cusp excursion. Thickened mitral valve leaflets with normal excursion. Mild mitral annulus and aortic root calcification. Pulmonic valve not well visualized. Normal tricuspid valve structure. IVC not visualized. A color flow and spectral Doppler study was performed and revealed: No aortic regurgitation. Trace mitral regurgitation. Mitral diastolic velocities suggest mild left ventricular diastolic dysfunction (Grade I). Trace tricuspid regurgitation. Tricuspid systolic velocities suggests peak right ventricular systolic pressure of 29 mmHg. No pulmonic regurgitation present.
[2020-08-28 13:16] VITALS: BP 137/75
--- NOTE | 2020-08-28 14:20 | General Progress Note ---
Subjective Allergies: Coded Allergies: PENICILLINS (Verified Allergy, Severe, Rash, 08/25/20) CODEINE (Verified Allergy, Unknown, 02/08/17) HYDROCODONE (Verified Allergy, Unknown, 08/25/20) Subjective better Objective Last 24 Hour Vital Signs Date Time Temp Pulse Resp B/P (MAP) Pulse Ox O2 Delivery O2 Flow Rate FiO2 08/28/20 13:16 97.5 68 16 137/75 (95) 98 08/28/20 09:00 Room Air 08/28/20 08:27 164/76 08/28/20 08:26 67 164/76 08/28/20 08:00 97.7 67 18 164/76 (105) 99 08/28/20 04:00 98.1 73 18 150/81 (104) 98 73 08/28/20 00:26 162/71 08/28/20 00:22 98.2 81 18 162/71 (101) 97 81 08/27/20 20:12 Room Air 08/27/20 20:00 98.2 79 18 154/71 (98) 97 79 08/27/20 18:25 147/82 08/27/20 16:00 97.6 74 143/74 (97) 08/27/20 14:30 73 139/73 (95) Intake and Output 08/27/20 08/28/20 19:00 07:00 Intake Total 300 ml Balance 300 ml Intake Oral 300 ml # Voids 2 Height (Feet): 5 Height (Inches): 1.00 Weight (Pounds): 190 Cardiovascular: normal rate Respiratory/Chest: chest wall non-tender Assessment/Plan Problem List: (1) Dizziness ICD Codes: R42 - Dizziness and giddiness SNOMED: 812493896, [id number] (2) Pre-syncope ICD Codes: R55 - Syncope and collapse SNOMED: 196584489 (3) HTN (hypertension) ICD Codes: I10 - Essential (primary) hypertension SNOMED: 32153315 (4) Generalized weakness ICD Codes: R53.1 - Weakness SNOMED: 93242073 (5) DM (diabetes mellitus) ICD Codes: E11.9 - Type 2 diabetes mellitus without complications SNOMED: 62382421 Assessment/Plan: continue chlorthalidone continue Januvia Neuro F/U discussed with RN and Garland Duran PT, MD Aug 28, 2020 14:20
--- NOTE | 2020-08-28 14:36 | Cardiology Report ---
APPROVED REPORT EKG Measurement Heart [id number] <Conclusion> Normal sinus rhythm Nonspecific T wave abnormality Abnormal ECG
--- NOTE | 2020-08-28 15:14 | Cardiology Progress Note ---
Assessment/Plan Assessment/Plan 1. Acute neurological symptoms of balance and vision. 2. Hypertension, reportedly chronic with poor control secondary noncompliance. 3. Obesity. 4. History of deep venous thromboses, status post therapy four years ago. 5. Abnormal cardiac enzyme no peak or segundo no sx to suggest acs mild trop abn with no peak nor segundo over more than 24 hour not suggestive of acs venous duplex neg echo normal wall motion tech difficult study vit b12 level neuro fu repeat ekg remained unremarkable repeat trop and cpk in am increase bp meds Subjective Cardiovascular: Denies: chest pain, lightheadedness, palpitations Respiratory: Denies: shortness of breath Gastrointestinal/Abdominal: Denies: abdomen distended Subjective still off balance but walked in [facility] Objective Last 24 Hour Vital Signs Date Time Temp Pulse Resp B/P (MAP) Pulse Ox O2 Delivery O2 Flow Rate FiO2 08/28/20 13:16 97.5 68 16 137/75 (95) 98 08/28/20 09:00 Room Air 08/28/20 08:27 164/76 08/28/20 08:26 67 164/76 08/28/20 08:00 97.7 67 18 164/76 (105) 99 08/28/20 04:00 98.1 73 18 150/81 (104) 98 73 08/28/20 00:26 162/71 08/28/20 00:22 98.2 81 18 162/71 (101) 97 81 08/27/20 20:12 Room Air 08/27/20 20:00 98.2 79 18 154/71 (98) 97 79 08/27/20 18:25 147/82 08/27/20 16:00 97.6 74 143/74 (97) General Appearance: no apparent distress, obese Cardiovascular: normal rate Respiratory/Chest: lungs clear Abdomen: normal bowel sounds, non tender, soft Extremities: no swelling Intake and Output 08/27/20 08/28/20 19:00 07:00 Intake Total 300 ml Balance 300 ml Intake Oral 300 ml # Voids 2 Hema Reed MD Aug 28, 2020 15:14
--- NOTE | 2020-08-28 15:47 | Diagnostic Imaging Report ---
Indication: Right-sided diplopia, left hand numbness and tingling, left leg weakness Technique: 2-D [id number] axial ASSET images obtained through the neck. Coronal multiphasic subtracted TRICKS images were obtained post IV contrast administration. MIP reconstructions of both data sets were performed Comparison: Brain CT angiogram 08/25/2020, brain MRI dated 08/27/2020 Findings: Evaluation is somewhat limited due to motion artifact, suboptimal flow related enhancement in portions of the extracranial carotid and vertebral arteries. Source images suggest mural irregularity of the right common carotid and internal carotid arteries and of the bilateral vertebral arteries. However, this is not confirmed on the prior CT angiogram, which demonstrates much better imaging of the same arterial segments. Suggestion of considerable mural irregularity of the basilar artery is demonstrated on the source and reconstructed images, but prior CT angiogram demonstrates only mild narrowing of the proximal basilar artery Impression: Limited essentially nondiagnostic exam, with extracranial and proximal intracranial vertebrobasilar circulation is better visualized on recent CT brain and neck angiogram. Please refer to that report Findings discussed by phone with Dr. Ramirez
[2020-08-28 16:00] VITALS: BP 151/116
[2020-08-28] MEDS: Lisinopril 20mg tab ORAL SCH (18:22)
[2020-08-28 20:00] VITALS: BP 143/75
[2020-08-29] VITALS: BP 144/76
[2020-08-29 04:00] VITALS: BP 140/75
[2020-08-29] MEDS: sitaGLIPtin 50mg tab ORAL SCH (05:45)
[2020-08-29 08:00] VITALS: BP 134/74
[2020-08-29] MEDS: Lisinopril 20mg tab ORAL SCH (09:26)
[2020-08-29] MEDS: Heparin 5000 units/ml inj SUBQ SCH (09:27)
[2020-08-29 12:00] VITALS: BP 150/78
[2020-08-29] MEDS ORDERED: ASPIRIN325 MG ORAL (12:36)
[2020-08-29] MEDS ORDERED: SALINE FLUSH IVF (12:36)
[2020-08-29] MEDS ORDERED: PRINIVIL20 MG ORAL (12:36)
[2020-08-29] MEDS ORDERED: JANUVIA50 MG ORAL (12:36)
[2020-08-29] MEDS ORDERED: NORVASC5 MG ORAL (12:36)
[2020-08-29 16:00] VITALS: BP 146/74
--- NOTE | 2020-08-30 13:12 | Discharge Summary ---
Discharge Summary Discharge Summary _ DATE OF ADMISSION: 08/25/2020 DATE OF DISCHARGE: 08/29/2020 DISCHARGED BY: Dr. Freire REASON FOR ADMISSION: 65 years old female with past medical history of hypertension, presented with a chief complaint of sudden onset of dizziness and generalized weakness in the morning. She also reported that she had feeling of falling to the side , like she was about to pass out. Patient also reported nausea. She denied visual changes, slurred speech , head trauma fall or syncopal episode ; no loss of consciousness. No chest pain or shortness of breath . No abdominal pain ,melena ,hematochezia ,hematuria. No fever or chills. No cough or shortness of breath . Upon initial evaluation vital signs revealed elevated blood pressure 185/81 Chest x-ray revealed no acute cardiopulmonary pathology. CT angiogram of the head revealed no acute abnormality, no arterial occlusion, multifocal atheromatous disease within the basilar artery and utility technician. Laboratory work-up revealed mild leukocytosis with WBC 12.6 ,stable hemoglobin ,hematocrit and platelet count. Potassium 3.1 , stable other electrolytes and renal parameters . Stable LFT and lipase. Lipid panel with LDL 114. Total cholesterol 188 . Troponin 0.524 . EKG revealed sinus rhythm , no signs of malignant arrhythmia Hemoglobin A1c 7.5 Patient subsequently admitted with dizziness, presyncope ,generalized weakness. CONSULTANTS: dialysis tech Dr. Reed neurologist Dr. Ramirez [facility] COURSE: Patient admitted to telemetry floor . Neurology and cardiology followed-up. Patient started on dual antiplatelet therapy with aspirin and Plavix as per neuro recommendations. Blood pressure was managed with calcium channel daljit and VILMA inhibitor. DVT and GI prophylaxis provided. Potassium was replaced. Serial troponin minimally elevated: next troponin 0.516 and the next 0.537. Echocardiogram demonstrated preserved ejection fraction 65 to 70% with mild left ventricular hypertrophy. No evidence of wall motion abnormality. Right ventricular systolic pressure of 29. Venous duplex bilateral lower extremity revealed no evidence of acute DVT. Per cardiology , there were no symptoms to suggest acute coronary syndrome. Mild troponin abnormality with no peak , no segundo for over 24 hours was not suggestive of acute coronary syndrome. EKG remained stable. Neurologist closely followed. 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 Patient also undergone neck MRA , which was essentially nondiagnostic. Blood sugar was managed with Januvia. Hemoglobin A1c 7.5. Chlorthalidone was added to antihypertensive regimen for better blood pressure control. Fall precaution maintained . Patient was working with a physical therapist . Patient clinically stabilized and was ready for discharge FINAL DIAGNOSES: Dizziness Presyncope Generalized weakness Acute neurological symptoms of balance and vision Hypertension Diabetes mellitus Obesity History of DVT, status post treatment (4 years ago) Abnormal troponin DISCHARGE MEDICATIONS: See Medication Reconciliation list. DISCHARGE INSTRUCTIONS: Patient was discharged home . Follow-up with a primary care provider in 1 week. I have been assigned to dictate discharge summary for this account. I was not involved in the patient's management. Monica Neely NP Aug 30, 2020 13:12
--- NOTE | 2020-08-30 20:38 | CDS Physician Query ---
Clarification is required for compliance, coding accuracy, and to reflect severity of illness for this patient Dear Dr. Garland Freire M.D. Date: 08/30/20 CDIS Name: Edy Spangler 65-year-old female was admitted with a lack of balance, disequilibrium, some blurred vision. Differential diagnosis of transient ischemic attack. I doubt CVA. Risk factor is obviously uncontrolled hypertension but also her hemoglobin A1c is elevated. She probably has undiagnosed diabetes as well. FINAL DIAGNOSES: Presyncope , Dizziness, Generalized weakness Acute neurological symptoms of balance and vision Hypertension , Diabetes mellitus , Obesity History of DVT, status post treatment (4 years ago) Abnormal troponin Clinical indicators: Troponin I - 0.524/0.516/0.537/0.456/0.410 Glucose Level - 118/137 "Presyncope" is documented in "FINAL DIAGNOSES" Please specify the cause: [] Dehydration [] Orthostatic Hypotension [x] Autonomic Imbalance [] Autonomic Dysfunction [] Psychogenic [] Shock [] Dialysis Disequilibrium Syndrome [] Heat [] Vertigo [] Other: [] Unable to determine Present on Admission: [] Yes [] No [] Clinically Undetermined Physician signature Date Please also document in your Progress Notes and/or Discharge Summary and indicate if the condition was present on admission. MTDD
--- NOTE | 2020-09-01 13:09 | Cardiology Report ---
APPROVED REPORT EKG Measurement Heart [id number] <Conclusion> Suspect arm lead reversal, interpretation assumes no reversal Unusual P axis, possible ectopic atrial rhythm Right ventricular hypertrophy Lateral infarct, age undetermined Inferior infarct, age undetermined ST & T wave abnormality, consider anterior ischemia Abnormal ECG
== END 2020-08-29 16:35 | disposition home or self-care (01) | DRG 48 ==
LOC: EMR 15:45 → 2E 17:40 → EDBEDREQ 17:45 → EDBEDREQSVC 17:49 → EDBEDREQ 17:59 → 4E 08-26 16:32
DX: G90.8 Other disorders of autonomic nervous system (principal); I10 Essential (primary) hypertension; E66.9 Obesity, unspecified; Z68.35 Body mass index [BMI] 35.0-35.9, adult; M62.81 Muscle weakness (generalized); I69.398 Other sequelae of cerebral infarction; H53.8 Other visual disturbances; Z88.6 Allergy status to analgesic agent; Z88.0 Allergy status to penicillin; E11.9 Type 2 diabetes mellitus without complications; Z86.718 Personal history of other venous thrombosis and embolism; R74.8 Abnormal levels of other serum enzymes; J44.9 Chronic obstructive pulmonary disease, unspecified; Z91.19 Patient's noncompliance with other medical treatment and regimen
CPT/HCPCS: 36415; 70450; 70496; 70498; 70548; 70551; 71045; 80053; 80061; 81003; 82550; 82607; 83036; 83690; 83880; 84484; 85025; 85610; 85730; 86140; 93005; 93306; 93970; 99285; A9585; J8499